=== PATIENT | male | born 1995 | race Caucasian/White ===

== ENCOUNTER 2016-06-12 19:39 | Emergency (ER) | payer MEDICAID ==
--- NOTE | 2016-06-12 19:53 | ER NURSING DOCUMENTATION ---
Nurse's Notes [facility] Name:Lc Hugo Age:20 yrs Sex:Male :1995 Arrival Date:06/12/2016 Time:19:39 Bed2 Private MD: Diagnosis:Dental Fracture, Traumatic Open Fracture of Tooth;Dental pain Presentation: 06/12 19:44 Acuity: HEATHER 4 tg 19:52 Presenting complaint: Patient states: Chipped tooth. Pt evaluated and D/C'd by Dr. wayne Abernathy at this time. Historical: - Allergies: No known drug Allergies; - PMHx: None; - PSHx: None; ED Course: 19:[address] in [address] [facility] 19:42 Barney Abernathy MD is Attending Physician. cd 19:44 Joel Beach RN is Primary Nurse. tg 19:44 Triage completed. tg Administered Medications: No medications were administered Outcome: 19:47 Discharge ordered by . cd 19:52 Patient left the ED. tg Signatures: Joel Beach RN RN tg Daley, Chris, MD MD cd Addison, Melissa [facility]
--- NOTE | 2016-06-12 19:53 | ER PHYSICIAN DOCUMENTATION ---
Physician Documentation [facility] Name:Lc Hugo Age:20 yrs Sex:Male :1995 Arrival Date:06/12/2016 Time:19:39 Bed2 Private MD: Barney Travis Disposition: 06/12 19:45 Chart complete. cd Disposition: 06/12/16 19:47 Discharged to Home/Self Care. Impression: Dental Fracture, Traumatic Open Fracture of Tooth, Dental pain. - Condition is Good. - Discharge Instructions: TOOTH PAIN - DENTAL PAIN. - Prescriptions for Hydrocodone- Acetaminophen 5-325 mg Oral - take 1 tablet by ORAL route every 6 hours As needed; 10 tablet. - Medical Reconciliation form form. - Follow up: Private Physician; When: 2 - 3 days; Reason: Recheck today's complaints, Continuance of care. - Problem is new. - Symptoms are unchanged. HPI: 19:42 This 20 yrs old Male presents to ER with complaints of Toothache - CHIPPED cd TOOTH. 19:42 The patient presents with broken tooth/teeth. The problem is located in the lower right cd first molar. Onset: The symptom(s)/episode began/occurred acutely, today. Duration: The symptoms are continuous, and are steadily getting worse. Associated signs and symptoms: The patient has no apparent associated signs or symptoms. Historical: - Allergies: No known drug Allergies; - PMHx: None; - PSHx: None; ROS: 19:42 ENT: Positive for dental pain. cd 19:42 All other systems are negative. Exam: 19:42 Constitutional: This is a well developed, well nourished patient who is awake, alert, cd and in no acute distress. Head/Face: Normocephalic, atraumatic. 19:42 Neck: Trachea midline, no thyromegaly or masses palpated, and no cervical cd lymphadenopathy. Supple, full range of motion without nuchal rigidity, or vertebral point tenderness. No Meningismus. 19:42 ENT: Mouth: Lips: normal, Oral mucosa: normal, abscess, is not appreciated, Dental exam: dental caries, that is mild, fractured teeth are noted, specifically the lower right first molar (#30). MDM: 19:42 Patient medically screened. cd 19:45 Data reviewed: vital signs, old medical records, and as a result, I will discharge cd patient, prescribe pain medication, hydrocodone. Counseling: I had a detailed discussion with the patient and/or guardian regarding: the historical points, exam findings, and any diagnostic results supporting the discharge/admit diagnosis, the need for outpatient follow up, for a recheck, for a referral to a specialist, a dentist. Dispensed Medications: No medications were administered Signatures: Joel Beach RN RN tg Barney Abernathy MD MD cd
== END 2016-06-12 19:53 | disposition home or self-care (01) ==
LOC: ER 19:39
DX: S02.5XXA Fracture of tooth (traumatic), initial encounter for closed fracture (principal); K02.9 Dental caries, unspecified
CPT/HCPCS: 99281